=== PATIENT | male | born 1940 | race Hispanic/Latino ===

== ENCOUNTER 2017-04-23 20:17 | Emergency (ER) | payer MEDICARE, MEDICAID ==
[~2017-04-23] VITALS: Ht 170.2 cm; Wt 85.2 kg
[~2017-04-23 20:17] MED LIST: INDOCIN25 MG OR; LISINOPRIL5 MG PO; MEDDOSEPAK OR; NORCO1 TA1 OR; OMEPRAZOLE20 M2 PO; PERCOCET 5/325M1 TAB OR; PREVPAC OR; SIMVASTATIN20 MG OR; TRAMADOL HCL50 MG OR; ULTRAM50 MG OR; allo PO
[2017-04-23 21:06] LABS: INFLUENZA A NONE DETECTED (NONE DETECT); INFLUENZA B NONE DETECTED (NONE DETECT)
[2017-04-23] MEDS ORDERED: ULTRAM50 M1 PO (21:43)
[2017-04-23] MEDS ORDERED: ZPAK PO (21:43)
[2017-04-23 21:47] VITALS: BP 148/78
[2017-04-23] MEDS ORDERED: PROVENTIL HFA IN (21:57)
== END 2017-04-23 21:57 | disposition home or self-care (01) ==
LOC: ED 20:17
PROVIDERS: Emergency Medicine
DX: J20.8 Acute bronchitis due to other specified organisms (principal); I10 Essential (primary) hypertension; M10.9 Gout, unspecified

== ENCOUNTER 2017-06-24 09:49 | Emergency (ER) | payer MEDICARE, MEDICAID ==
[~2017-06-24] VITALS: Ht 170.2 cm; Wt 81.0 kg
[~2017-06-24 09:49] MED LIST changes: +PROVENTIL HFA IN; +ULTRAM50 M1 PO; +ZPAK PO
[2017-06-24] MEDS ORDERED: SILDENAFIL20 MG (10:28)
[2017-06-24 11:06] LABS: HEMATOCRIT 38.1 % (39.0-50.0); HEMOGLOBIN 12.6 g/dl (14.0-18.0); IMMATURE GRANULOCYTES 0.2 % (0.0-1.0); MEAN CELL VOLUME 99.5 fL CALC (80.0-100.0); MEAN CORPUSCULAR HGB 32.9 pG CALC (26.0-32.0); MEAN CORPUSCULAR HGB CONC 33.1 g/L CALC (32.0-36.0); NEUT# 5.95 thou/uL (1.82-7.42); RED BLOOD COUNT 3.83 mill/uL (4.70-6.10); RED CELL DISTRI WIDTH 13.2 % (11.5-15.5)
[2017-06-24 11:47] LABS: CREATININE 2.1 mg/dL (0.7-1.3)
[2017-06-24] MEDS ORDERED: BACTRIM DS1 TAB PO (12:28)
[2017-06-24 14:30] VITALS: BP 101/53
== END 2017-06-24 14:30 | disposition home or self-care (01) ==
LOC: ED 09:49
PROVIDERS: Family Medicine
PROC: 3E1N38Z Irrigation of Male Reproductive using Irrigating Substance, Percutaneous Approach (ICD-10-PCS; principal; 2017-06-24)
DX: N48.30 Priapism, unspecified (principal); T46.7X5A Adverse effect of peripheral vasodilators, initial encounter; Y92.009 Unspecified place in unspecified non-institutional (private) residence as the place of occurrence of the external cause; N52.9 Male erectile dysfunction, unspecified; N48.89 Other specified disorders of penis; E78.00 Pure hypercholesterolemia, unspecified; I12.9 Hypertensive chronic kidney disease with stage 1 through stage 4 chronic kidney disease, or unspecified chronic kidney disease; N18.9 Chronic kidney disease, unspecified; M10.9 Gout, unspecified

== ENCOUNTER 2018-04-27 16:13 | Emergency (ER) | payer MEDICARE ==
[~2018-04-27] VITALS: Ht 170.2 cm; Wt 81.8 kg
[~2018-04-27 16:13] MED LIST changes: +BACTRIM DS1 TAB PO; +SILDENAFIL20 MG
[2018-04-27] MEDS ORDERED: TAM75CAP PO (17:57)
[2018-04-27 18:02] VITALS: BP 139/71
== END 2018-04-27 18:04 | disposition home or self-care (01) ==
LOC: ED 16:13
DX: J11.1 Influenza due to unidentified influenza virus with other respiratory manifestations (principal); I10 Essential (primary) hypertension; E78.00 Pure hypercholesterolemia, unspecified

== ENCOUNTER 2019-12-04 19:30 | Emergency (ER) | payer MEDICARE, MEDICAID ==
[~2019-12-04] VITALS: Ht 180.3 cm; Wt 80.9 kg
[~2019-12-04 19:30] MED LIST changes: +TAM75CAP PO
[2019-12-04] MEDS ORDERED: TORADOL PO ×2 (20:13→22:30)
[2019-12-04] MEDS ORDERED: CRESTOR20 MG PO (20:13)
[2019-12-04 21:28] LABS: URINE BILIRUBIN - DIPSTICK NEGATIVE (NEGATIVE); URINE BLOOD DIPSTICK LARGE (NEGATIVE); URINE CLARITY CLEAR; URINE COLOR YELLOW; URINE GLUCOSE - DIPSTICK NEGATIVE (NEGATIVE); URINE KETONE NEGATIVE (NEGATIVE); URINE LEUK ESTERASE NEGATIVE (Negative); URINE NITRITE - DIPSTICK NEGATIVE (Negative); URINE PROTEIN - DIPSTICK 30 mg/dL (NEG-TRACE); URINE UROBILINOGEN - DIPSTICK 0.2 E.U./dL (0.2)
[2019-12-04 21:43] LABS: URINE SQUAMOUS EPITHELIAL CELL FEW EPI/hpf (0-FEW); URINE WBC 0-2 WBC/hpf (0-5)
[2019-12-04] MEDS ORDERED: ORPHENADRINE100 MG PO (22:30)
[2019-12-04 22:50] VITALS: BP 178/80
== END 2019-12-04 22:50 | disposition home or self-care (01) ==
LOC: ED 19:30
PROVIDERS: Emergency Medicine
DX: M79.605 Pain in left leg (principal); M79.604 Pain in right leg; R31.21 Asymptomatic microscopic hematuria; I10 Essential (primary) hypertension

== ENCOUNTER 2019-12-11 02:38 | Emergency (ER) | payer MEDICARE, MEDICAID ==
[~2019-12-11] VITALS: Ht 180.3 cm; Wt 80.5 kg
[~2019-12-11 02:38] MED LIST changes: +CRESTOR20 MG PO; +ORPHENADRINE100 MG PO; +TORADOL PO
[2019-12-11] MEDS ORDERED: ZESTRIL10 M1 PO (03:02)
[2019-12-11] MEDS ORDERED: ATORVASTATIN CA40 MG PO (03:03)
[2019-12-11] MEDS ORDERED: [UNRECOGNIZED DRUG - OTHER] PO (03:07)
[2019-12-11] MEDS ORDERED: FEBUXOSTAT80 MG PO (03:08)
[2019-12-11 03:39] LABS: HEMATOCRIT 44.2 % (39.0-50.0); HEMOGLOBIN 13.4 g/dl (14.0-18.0); IMMATURE GRANULOCYTES 0.6 % (0.0-5.0); MEAN CELL VOLUME 101.6 fL CALC (80.0-100.0); MEAN CORPUSCULAR HGB 30.8 pG CALC (26.0-32.0); MEAN CORPUSCULAR HGB CONC 30.3 g/dL CAL (32.0-36.0); NEUT# 12.62 thou/uL (1.82-7.42); RED BLOOD COUNT 4.35 mill/uL (4.70-6.10); RED CELL DISTRI WIDTH 12.6 % (11.5-15.5)
[2019-12-11 03:48] LABS: ALBUMIN 4.8 g/dL (3.2-5.0); ALKALINE PHOSPHATASE 83 u/l (38-126); AMYLASE 121 u/l (30-110); ANION GAP 15 (6-22 (CALC)); BILIRUBIN, TOTAL 0.3 mg/dL (0.0-1.4); BUN 31 mg/dL (8-23); BUN/CREATININE RATIO 13 (12-20 (CALC)); CARBON DIOXIDE 22 mmol/l (22-30); CHLORIDE 105 mmol/l (95-108); CREATININE 2.3 mg/dL (0.7-1.3); GFR 28 ML/MIN (>=60 (CALC)); GFR FOR AFR.AMER. 34 ML/MIN (>=60 (CALC)); LIPASE 74 u/l (23-300); POTASSIUM 4.9 mmol/l (3.5-5.1); SODIUM 138 mmol/l (137-146)
[2019-12-11 03:52] LABS: SGOT/AST 83 u/l (19-48); TOTAL PROTEIN 8.6 g/dL (6.3-8.2)
[2019-12-11 04:00] LABS: MYOGLOBIN 421 ng/mL (0 - 121)
[2019-12-11 05:27] LABS: URINE BILIRUBIN - DIPSTICK NEGATIVE (NEGATIVE); URINE BLOOD DIPSTICK NEGATIVE (NEGATIVE); URINE COLOR YELLOW; URINE GLUCOSE - DIPSTICK NEGATIVE (NEGATIVE); URINE KETONE NEGATIVE (NEGATIVE); URINE LEUK ESTERASE NEGATIVE (NEGATIVE); URINE NITRITE - DIPSTICK NEGATIVE (Negative); URINE PROTEIN - DIPSTICK NEGATIVE (NEG-TRACE); URINE UROBILINOGEN - DIPSTICK 0.2 E.U./dL (0.2)
[2019-12-11] MEDS ORDERED: PHENERGAN25 MG/TAB PO (05:52)
[2019-12-11 06:00] VITALS: BP 146/68
== END 2019-12-11 06:12 | disposition home or self-care (01) ==
LOC: ED 02:38
PROVIDERS: Family Medicine
DX: A08.4 Viral intestinal infection, unspecified (principal); K56.0 Paralytic ileus; I10 Essential (primary) hypertension; Z20.828 Contact with and (suspected) exposure to other viral communicable diseases

== ENCOUNTER 2023-05-20 11:39 | Inpatient (IN) | payer MEDICARE ==
[~2023-05-20] VITALS: Ht 180.3 cm; Wt 81.2 kg
[2023-05-20] VITALS (22 sets, daily range): BP systolic 99–136; BP diastolic 63–82
[~2023-05-20 11:39] MED LIST changes: +AMLODIPINE BESY10 MG PO; +AMOX/K CLAV875 M1 PO; +ATORVASTATIN CA40 MG PO; +CYCLOBENZAPRINE10 MG PO; +FEBUXOSTAT80 MG PO; +HYDROCHLOROT12.5 M1 PO; +MIRALAX17 GM PO; +PHENERGAN25 MG/TAB PO; +PREDNISONE20 MG PO; +ZESTRIL10 M1 PO; +ZITHROMAX250 MG PO; +[UNRECOGNIZED DRUG - OTHER] PO
[2023-05-20 12:38] LABS: BASO% 0.1 % (0-3); IMMATURE GRANULOCYTES 5.1 % (0.0-5.0); LYMPH% 16.7 % (15-41); MEAN CELL VOLUME 98.4 fL CALC (80.0-100.0); MEAN CORPUSCULAR HGB 32.9 pG CALC (26.0-32.0); MEAN CORPUSCULAR HGB CONC 33.4 g/dL CAL (32.0-36.0); MONO% 5.7 % (2-13); NEUT# 8.14 thou/uL (1.82-7.42); NEUT% 69.4 % (42-76); RED BLOOD COUNT 4.38 mill/uL (4.70-6.10); RED CELL DISTRI WIDTH 14.2 % (11.5-15.5)
[2023-05-20 12:56] LABS: CREATININE 1.9 mg/dL (0.7-1.3); POTASSIUM 3.7 mmol/l (3.5-5.1); TOTAL PROTEIN 7.2 g/dL (6.3-8.2)
[2023-05-20 12:58] LABS: D-DIMER 2.21 mg/L (0.19-0.60)
[2023-05-20 12:59] LABS: ALBUMIN 4.4 g/dL (3.2-5.0); BILIRUBIN, TOTAL 0.6 mg/dL (0.2-1.3); INTERNATIONAL NORMALIZED RATIO 1.1 RATIO (0.7-1.3); PROTHROMBIN TIME 10.3 SECONDS (9.0-12.5)
[2023-05-20 13:02] LABS: HEMATOCRIT 43.1 % (39.0-50.0); HEMOGLOBIN 14.4 g/dl (14.0-18.0)
[2023-05-20] MEDS ORDERED: TAMSULOSIN0.4 MG PO (14:50)
[2023-05-20 15:55] LABS: URINE BILIRUBIN - DIPSTICK Negative (NEGATIVE); URINE BLOOD DIPSTICK Negative (NEGATIVE); URINE COLOR Yellow; URINE GLUCOSE - DIPSTICK Negative (NEGATIVE); URINE KETONE Negative (NEGATIVE); URINE LEUK ESTERASE Negative (NEGATIVE); URINE NITRITE - DIPSTICK Negative (Negative); URINE PH 6.5 (4.5-8.0); URINE PROTEIN - DIPSTICK Negative (NEG-TRACE); URINE SPECIFIC GRAVITY 1.015; URINE UROBILINOGEN - DIPSTICK 0.2 E.U./dL (0.2)
[2023-05-21] VITALS (8 sets, daily range): BP systolic 143–190; BP diastolic 68–92
[2023-05-21 05:11] LABS: BASO% 0.1 % (0-3); HEMOGLOBIN 12.5 g/dl (14.0-18.0); IMMATURE GRANULOCYTES 3.7 % (0.0-5.0); LYMPH% 5.3 % (15-41); MEAN CELL VOLUME 97.4 fL CALC (80.0-100.0); MEAN CORPUSCULAR HGB 33.1 pG CALC (26.0-32.0); MONO% 1.1 % (2-13); NEUT# 15.59 thou/uL (1.82-7.42); NEUT% 89.8 % (42-76); RED BLOOD COUNT 3.78 mill/uL (4.70-6.10); RED CELL DISTRI WIDTH 13.9 % (11.5-15.5)
[2023-05-21 05:21] LABS: HEMATOCRIT 36.8 % (39.0-50.0)
[2023-05-21 05:41] LABS: CREATININE 1.5 mg/dL (0.7-1.3); POTASSIUM 4.4 mmol/l (3.5-5.1)
[2023-05-22] VITALS (10 sets, daily range): BP systolic 153–191; BP diastolic 85–100
[2023-05-22 07:05] LABS: ALBUMIN 3.8 g/dL (3.2-5.0); CREATININE 2.1 mg/dL (0.7-1.3); MAGNESIUM 1.8 mg/dL (1.6-2.3); POTASSIUM 4.1 mmol/l (3.5-5.1); TOTAL PROTEIN 6.4 g/dL (6.3-8.2)
[2023-05-22 07:21] LABS: BILIRUBIN, TOTAL 0.3 mg/dL (0.2-1.3)
[2023-05-22 08:00] LABS: HEMATOCRIT 37.9 % (39.0-50.0); HEMOGLOBIN 12.4 g/dl (14.0-18.0); IMMATURE GRANULOCYTES 1.8 % (0.0-5.0); MEAN CELL VOLUME 98.7 fL CALC (80.0-100.0); MEAN CORPUSCULAR HGB 32.3 pG CALC (26.0-32.0); MEAN CORPUSCULAR HGB CONC 32.7 g/dL CAL (32.0-36.0); PLATELET COUNT 215 thou/uL (130-400); RED BLOOD COUNT 3.84 mill/uL (4.70-6.10); RED CELL DISTRI WIDTH 14.4 % (11.5-15.5)
[2023-05-22 08:03] LABS: MANUAL DIFFERENTIAL YES
[2023-05-22 12:35] LABS: HEMATOCRIT 38.5 % (39.0-50.0); HEMOGLOBIN 12.9 g/dl (14.0-18.0); IMMATURE GRANULOCYTES 1.7 % (0.0-5.0); MEAN CORPUSCULAR HGB 32.2 pG CALC (26.0-32.0); MEAN CORPUSCULAR HGB CONC 33.5 g/dL CAL (32.0-36.0); PLATELET COUNT 225 thou/uL (130-400); RED BLOOD COUNT 4.01 mill/uL (4.70-6.10); RED CELL DISTRI WIDTH 14.3 % (11.5-15.5)
[2023-05-22 12:38] LABS: MANUAL DIFFERENTIAL YES
[2023-05-23 00:16] VITALS: BP 158/84
[2023-05-23 04:40] VITALS: BP 173/100
[2023-05-23 05:55] LABS: HEMOGLOBIN 12.6 g/dl (14.0-18.0); IMMATURE GRANULOCYTES 1.5 % (0.0-5.0); LYMPH% 2.5 % (15-41); MEAN CELL VOLUME 97.1 fL CALC (80.0-100.0); MEAN CORPUSCULAR HGB 33.1 pG CALC (26.0-32.0); MEAN CORPUSCULAR HGB CONC 34.1 g/dL CAL (32.0-36.0); MONO% 1.9 % (2-13); NEUT# 23.51 thou/uL (1.82-7.42); NEUT% 94.1 % (42-76); RED BLOOD COUNT 3.81 mill/uL (4.70-6.10); RED CELL DISTRI WIDTH 14.7 % (11.5-15.5)
[2023-05-23 06:24] LABS: ALBUMIN 3.4 g/dL (3.2-5.0); BILIRUBIN, TOTAL 0.3 mg/dL (0.2-1.3); CREATININE 1.7 mg/dL (0.7-1.3); MAGNESIUM 1.7 mg/dL (1.6-2.3); POTASSIUM 3.9 mmol/l (3.5-5.1); TOTAL PROTEIN 6.1 g/dL (6.3-8.2)
[2023-05-23 07:01] VITALS: BP 156/81
[2023-05-23 10:32] VITALS: BP 186/83
[2023-05-23 12:32] VITALS: BP 180/97
[2023-05-23 12:44] VITALS: BP 159/75
[2023-05-23] MEDS ORDERED: LOPRESSOR25 MG PO (13:00)
[2023-05-23] MEDS ORDERED: ADVAIR DISK1 IN (13:01)
[2023-05-23] MEDS ORDERED: PREDNISONE10 MG PO (13:03)
[2023-05-23] MEDS ORDERED: OMNICEF300 MG PO (13:03)
== END 2023-05-23 13:34 | disposition home or self-care (01) | DRG 190 ==
LOC: ED 11:39 → ED-I 14:20 → ED 14:49 → MS2 14:50
PROVIDERS: Family Medicine; Nurse Practitioner Family; Student in an Organized Health Care Education/Training Program; ADMIT Student in an Organized Health Care Education/Training Program; ATTEND Student in an Organized Health Care Education/Training Program
DX: J44.1 Chronic obstructive pulmonary disease with (acute) exacerbation (principal); J96.01 Acute respiratory failure with hypoxia; E87.1 Hypo-osmolality and hyponatremia; N17.9 Acute kidney failure, unspecified; E87.20 Acidosis, unspecified; E86.9 Volume depletion, unspecified; I95.9 Hypotension, unspecified; I12.9 Hypertensive chronic kidney disease with stage 1 through stage 4 chronic kidney disease, or unspecified chronic kidney disease; N18.31 Chronic kidney disease, stage 3a; I71.40 Abdominal aortic aneurysm, without rupture, unspecified; E78.5 Hyperlipidemia, unspecified; T48.6X6A Underdosing of antiasthmatics, initial encounter; Z91.128 Patient's intentional underdosing of medication regimen for other reason; Z20.822 Contact with and (suspected) exposure to COVID-19
CPT/HCPCS: A9540; J1644